=== PATIENT | female | born 1995 | race Two or more races ===

== ENCOUNTER 2021-01-20 14:10 | Emergency (ER) | payer OTHER ==
[~2021-01-20] VITALS: Ht 172.7 cm; Wt 65.8 kg
[2021-01-20] MEDS ORDERED: STOOL SOFTENER50 MG PO (19:24)
[2021-01-20] MEDS ORDERED: PRENATAL + DHA1 EAC1 PO (19:24)
== END 2021-01-20 21:39 | disposition home or self-care (01) ==
LOC: ER 14:10
DX: O26.899 Other specified pregnancy related conditions, unspecified trimester (principal); Z3A.00 Weeks of gestation of pregnancy not specified; Z91.81 History of falling